=== PATIENT | male | born 1955 | race Caucasian/White ===

== ENCOUNTER 2017-03-05 15:21 | Outpatient (CLI) | payer MEDICAID | END 2017-03-05 15:22 | disposition critical access hospital (66) | LOC: EMS 15:21 | PROVIDERS: ATTEND Surgery | DX: I46.9 Cardiac arrest, cause unspecified (principal) | CPT/HCPCS: A0425; A0433 ==

== ENCOUNTER 2017-03-05 15:40 | Emergency (ER) | payer MEDICAID ==
[2017-03-05] MEDS ORDERED: LORazepam 2 MG/ML SYRINGE ONE ×2 (15:41→15:49)
[2017-03-05] MEDS ORDERED: ASPIRIN 300 MG SUPP PR STA (15:45)
[2017-03-05] MEDS ORDERED: LORazepam 2 MG/ML SYRINGE IVP STA ×2 (15:46→15:50)
[2017-03-05] MEDS ORDERED: PROPOFOL 1000 MG/100 ML 100 ML IV ONE (15:49)
[2017-03-05] MEDS ORDERED: PROPOFOL 1000 MG/100 ML 100 ML IV STA (15:50)
[2017-03-05] MEDS ORDERED: ACETAMINOPHEN 120 MG SUPP PR ONE (16:02)
[2017-03-05] MEDS ORDERED: CLOPIDOGREL 300 MG TABLET PO STA (16:34)
[2017-03-05] MEDS ORDERED: HEPARIN 5,000 UNIT/ML VIAL IVP STA (16:34)
[2017-03-05] MEDS ORDERED: ASPIRIN 300 MG SUPP PR ONE (17:03)
== END 2017-03-05 16:30 | disposition short-term general hospital (02) ==
DX: I21.29 ST elevation (STEMI) myocardial infarction involving other sites (principal)
CPT/HCPCS: 36415; 70450; 71010; 72125; 80053; 82550; 82553; 82803; 83605; 83690; 83735; 84484; 85025; 85610; 85730; 93005; 93010; 96365; 96375; 99291; A9270; J2060